=== PATIENT | male | born 1995 | race Caucasian/White ===

== ENCOUNTER 2016-06-30 02:54 | Emergency (ER) | payer BC ==
[~2016-06-30] VITALS: Ht 170.2 cm; Wt 73.2 kg
[2016-06-30 03:01] VITALS: TEMP 36.6; O2SAT 99; Ht 170.2 cm; Wt 73.2 kg
--- NOTE | 2016-06-30 03:34 | EMERGENCY ROOM VISIT NOTE ---
History Report prepared by Luke: Suyapa Walters Under the Supervision of: Dr. Doreen Cedillo M.D. First contact with patient: 03:05 Chief Complaint: ALCOHOL OVERDOSE Stated Complaint: ALCOHOL OVERDOSE Nursing Triage Summary: patient brought in by ems patient found in [facility] and was not sure where he was patient reports having 6 ETOH drinks History of Present Illness The patient is a 20 year old male who presents to the Emergency Room via EMS with complaints of alcohol overdose occurring tonight. The patient was found outside of [facility]. He told EMS that he had 6 alcoholic drinks. HPI is limited secondary to alcohol intoxication. Source of History: patient, EMS History Limited By: intoxication Onset: tonight Position: other (global) Quality: other (alcohol overdose) Review of Systems ROS is limited secondary to alcohol intoxication. Past Medical & Surgical Medical Problems: (1) No Known Active Medical Problems Family History Patient reports no known family medical history. Social History Smoking Status: Never Smoker Alcohol Use: occasionally Occupation Status: student Current/Historical Medications No Active Prescriptions or Reported Meds Allergies Coded Allergies: No Known Allergies (Unverified , 06/30/16) Physical Exam Vital Signs Date Time Temp Pulse Resp B/P Pulse Ox O2 Delivery O2 Flow Rate FiO2 06/30/16 09:38 94 18 146/104 97 06/30/16 08:00 93 16 141/84 100 Room Air 06/30/16 06:18 59 14 111/45 95 Room Air 06/30/16 04:30 77 16 115/51 95 Room Air 06/30/16 03:04 94 06/30/16 03:01 99 Room Air 06/30/16 03:01 36.6 93 18 150/86 98 Room Air Physical Exam Vital signs reviewed. General: Odor of EtOH in the breath, disheveled 20-year-old male. No signs of trauma. HEENT: Mild scleral injection bilaterally, PERRLA, neck supple, dry mucous membranes. Cardiovascular: Regular rate and rhythm, no extra sounds. Pulmonary: Clear to auscultation bilaterally, normal work of breathing. Abdomen: Soft, nontender, nondistended, positive bowel sounds. Musculoskeletal: Upper and lower extremities atraumatic, no peripheral edema Skin: Warm, dry, no rash. Atraumatic. Neurologic: Patient is verbal but somewhat confused. No trauma. Medical Decision & Procedures Laboratory Results Test 06/30/16 03:06 Ethyl Alcohol mg/dL 287.0 mg/dl (0-3) Laboratory results per my review. ED Course 0305: Past medical records reviewed. The patient was evaluated in room B04A. A complete history and physical examination was performed. 729: The patient was signed out to Dr. Weber at [id number]. Medical Decision The differential diagnosis of the patient's presentation includes alcohol ingestion, illicit drug use, trauma, and dehydration. This patient was evaluated and appeared to be in no significant distress. Patient was observed on the quality assurance monitor with aspiration precautions maintained. Blood alcohol level was 287. Patient had no obvious signs of trauma. The patient was observed in the emergency department until he reached a more sober state. He was signed out to Dr. Weber at the change of shift. Please see his notes for further details. Consults Time Called: 724 Consulting Physician: Dr. Weber at [id number] Returned Call: [phone] The patient was signed out to Dr. Weber at [id number]. Impression Primary Impression: Alcohol overdose Scribe Attestation The scribe's documentation has been prepared under my direction and personally reviewed by me in its entirety. I confirm that the note above accurately reflects all work, treatment, procedures, and medical decision making performed by me. Departure Information Dispostion Still a Patient Prescriptions No Active Prescriptions or Reported Meds Patient Instructions My [facility]
--- NOTE | 2016-06-30 09:00 | EMERGENCY ROOM VISIT NOTE ---
ED Visit Note First contact with patient: 08:59 The patient was taken in signout from Dr. Cedillo at the change of shift. Please see that note for details. The patient was pending clearance of his intoxication. ETOH level was 287 just after 0300. At 0900 he was doing very well and had no significant intoxication present. The patient was counseled. I gave my usual and customary discussion regarding this issue.
[2016-06-30 09:38] VITALS: BP 146/104; PULSE 94; O2SAT 97
== END 2016-06-30 09:39 | disposition home or self-care (01) ==
LOC: C.EDB 02:56
DX: T51.91XA Toxic effect of unspecified alcohol, accidental (unintentional), initial encounter (principal); Y90.8 Blood alcohol level of 240 mg/100 ml or more